=== PATIENT | male | born 1955 | race Caucasian/White ===

== ENCOUNTER → 2021-02-03 | Outpatient (CLI) | payer OTHER ==
[~2021-02-03] MED LIST: LISI5 PO; LOVA40 PO; Vibramycin100 MG PO
== END | disposition home or self-care (01) ==
LOC: LAB SHORT 08:28
DX: L57.0 Actinic keratosis (principal)
CPT/HCPCS: 88305

== ENCOUNTER 2022-06-13 06:09 | Day surgery (SDC) | payer OTHER ==
[~2022-06-13] VITALS: Ht 180.3 cm; Wt 100.6 kg
[~2022-06-13 06:09] MED LIST changes: +Aspir 8181 MG PO; +LOSA50 PO; +ZYRTEC10 M2 PO
[2022-06-13] MEDS ORDERED: ATOR20 (07:06)
[2022-06-13] MEDS ORDERED: LOSARTAN POTAS100 M1 (07:07)
--- NOTE | 2022-06-13 08:28 | NUR ---
06/13/22 0828 EARL YOST 1MG OF EPI INJECTED INTO A 3000ML BAG OF LR TO USE FOR IRRIGATION DURING SURGERY.
--- NOTE | 2022-06-13 11:12 | NUR ---
06/13/22 111 Moises Coronado PT REPORTED 4/10 PAIN AT TIME OF DISCHARGE BUT DESCRIBED PAIN TOLERABLE AND EXPRESSED READINESS TO RETURN HOME. HE APPEARED CALM AND RELAXED.
== END 2022-06-13 11:00 | disposition home or self-care (01) ==
LOC: ORSCSDS 06:09
PROVIDERS: Orthopaedic Surgery
PROC: 0RNJ4ZZ Release Right Shoulder Joint, Percutaneous Endoscopic Approach (ICD-10-PCS; principal; 2022-06-13 07:30)
DX: M75.121 Complete rotator cuff tear or rupture of right shoulder, not specified as traumatic (principal); M75.41 Impingement syndrome of right shoulder; I10 Essential (primary) hypertension; Z79.899 Other long term (current) drug therapy; Z79.82 Long term (current) use of aspirin
CPT/HCPCS: A9270; C1713; J0171; J0690; J1100; J1885; J2250; J2405; J2704; J2795; J3010; J7120